=== PATIENT | male | born 1995 | race Caucasian/White ===

== ENCOUNTER 2019-03-03 08:27 | Emergency (ER) | payer SELFPAY ==
[~2019-03-03] VITALS: Ht 170.2 cm; Wt 64.0 kg
[2019-03-03] MEDS ORDERED: ACETAMINOPHEN WITH CODEINE 300/30MG TABLET PO ONE (09:00)
[2019-03-03] MEDS ORDERED: LIDOCAINE HCL 1% 20ML VIAL (Pyxis) INJ INFIL ONE (10:00)
[2019-03-03 10:40] VITALS: BP 132/89
== END 2019-03-03 10:41 | disposition home or self-care (01) ==
LOC: ER 08:27
DX: S01.01XA Laceration without foreign body of scalp, initial encounter (principal); V43.92XA Unspecified car occupant injured in collision with other type car in traffic accident, initial encounter; Y93.89 Activity, other specified; Y92.488 Other paved roadways as the place of occurrence of the external cause
CPT/HCPCS: 70450; 99284; J3490